=== PATIENT | female | born 1990 | race Caucasian/White ===

== ENCOUNTER 2017-04-27 17:49 | Emergency (ER) | payer BC ==
[2017-04-27 18:06] VITALS: BP 114/82
--- NOTE | 2017-04-27 18:28 | EDM.PDOC ---
ED HPI GENERAL MEDICAL PROBLEM - General Chief Complaint: Fever Stated Complaint: [id number] DOESNT FEEL GOOD Time Seen by Provider: 04/27/17 18:15 Source of Information: Reports: Patient History Limitations: Reports: No Limitations - History of Present Illness INITIAL COMMENTS - FREE TEXT/NARRATIVE: This 26 yo female patient reports to the ED with a sore throat and cough over the past 2 days. The patient reports she did have a fever earlier today (101), but her fever went away after taking a shower. The patient reports she did have nausea, vomiting and diarrhea over the past 24 hours. The patient took immodium earlier today for diarrhea. The patient reports she has not take Tylenol or ibuprofen for temporary symptom relief. Onset Date: 04/25/17 Duration: Constant, Getting Worse Location: Reports: Head, Neck, Chest Quality: Reports: Ache, Dull Severity: Moderate Improves with: Reports: None Worsens with: Reports: None Associated Symptoms: Reports: cough w sputum, Nausea/Vomiting Throat Pain Score (Numeric/FACES): 3 - Related Data Allergies Allergy/AdvReac Type Severity Reaction Status Date / Time metal Allergy Rash Uncoded 04/27/17 18:06 Home Meds: Home Meds . 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 , Other OB/BYN History: placenta wouldnt detach so had surgury Musculoskeletal History: Reports: None Neurological History: Reports: None Psychiatric History: Reports: None Endocrine/Metabolic History: Reports: None Hematologic History: Reports: None Immunologic History: Reports: None Oncologic (Cancer) History: Reports: None Dermatologic History: Reports: None - Infectious Disease History Infectious Disease History: Reports: Chicken Pox Other Infectious Disease History: has had shingles shot - Past Surgical History Head Surgeries/Procedures: Reports: None Social & Family History - Tobacco Use Smoking Status *Q: Current Every Day Smoker Years of Tobacco use: 8 Packs/Tins Daily: 1 Used Tobacco, but Quit: No Month/Year Tobacco Last Used: 08/13/2014 Second Hand Smoke Exposure: No - Caffeine Use Caffeine Use: Reports: None - Alcohol Use Days Per Week of Alcohol Use: 0 - Recreational Drug Use Recreational Drug Use: No - Living Situation & Occupation Living situation: Reports: with Significant Other Occupation: Employed ED ROS ENT - Review of Systems Review Of Systems: ROS reveals no pertinent complaints other than HPI. ED EXAM, ENT - Physical Exam Exam: See Below Exam Limited By: No Limitations General Appearance: Alert, WD/WN, Mild Distress Eye Exam: Bilateral Eye: EOMI, Normal Inspection, PERRL Ears: Normal External Exam, Normal Canal, Hearing Grossly Normal, Normal TMs Nose: Normal Inspection, Normal Mucousa, No Blood, Clear Rhinorrhea Mouth/Throat: Pharyngeal Erythema Head: Atraumatic, Normocephalic Neck: Supple, Full Range of Motion, Lymphadenopathy (L) (mild), Lymphadenopathy (R) (mild) Respiratory/Chest: No Respiratory Distress, Lungs Clear, Normal Breath Sounds, No Accessory Muscle Use, Chest Non-Tender Cardiovascular: Normal Peripheral Pulses, Regular Rate, Rhythm, No Edema, No Gallop, No JVD, No Murmur, No Rub GI/Abdominal: Normal Bowel Sounds, Soft, Non-Tender, No Organomegaly, No Distention, No Abnormal Bruit, No Mass (Female) Exam: Deferred Rectal (Female) Exam: Deferred Back: Normal Inspection, Full Range of Motion Extremities: Normal Inspection, Normal Range of Motion, Non-Tender, No Pedal Edema, Normal Capillary Refill Neurological: Alert, Oriented, CN II-XII Intact, Normal Cognition, Normal Gait, Normal Reflexes, No Motor/Sensory Deficits Psychiatric: Normal Affect, Normal Mood Skin: Warm, Dry, Intact, Normal Color, No Rash Lymphatic: No Adenopathy Course - Vital Signs Last Recorded V/S: Last Vital Signs Temp 37.1 C 04/27/17 18:00 Pulse 110 H 04/27/17 18:00 Resp 16 04/27/17 18:00 BP 114/82 04/27/17 18:00 Pulse Ox 97 04/27/17 18:00 - Orders/Labs/Meds Orders: Active Orders 24 hr Category Date Time Status CULTURE STREP A CONFIRMATION [RM] Stat Lab 04/27/17 18:15 Results STREP SCRN A RAPID W CULT CONF [RM] Stat Lab 04/27/17 18:15 Ordered Departure - Departure Time of Disposition: 18:32 Disposition: Home, Self-Care 01 Condition: Fair Clinical Impression: Sinusitis Qualifiers: Sinusitis location: frontal Chronicity: acute Recurrence: non-recurrent Qualified Code(s): J01.10 - Acute frontal sinusitis, unspecified - Discharge Information Instructions: Sinusitis, Adult, [id number] Forms: ED Department Discharge Care Plan Goals: The patient was advised of the examination and lab results during the visit. The patient was discharged with a script for Augmentin (875/125) #20 to take 1 by mouth 2 times per day for 10 days. If the patient has any additional symptoms or concerns, the patient should follow-up with her primary care facility or return to the emergency department. - My Orders Last 24 Hours: My Active Orders 04/27/17 18:15 CULTURE STREP A CONFIRMATION [RM] Stat STREP SCRN A RAPID W CULT CONF [RM] Stat - Assessment/Plan Last 24 Hours: My Active Orders 04/27/17 18:15 CULTURE STREP A CONFIRMATION [RM] Stat STREP SCRN A RAPID W CULT CONF [RM] Stat
== END 2017-04-27 18:46 | disposition home or self-care (01) ==
LOC: DL.ED 17:49
DX: J01.10 Acute frontal sinusitis, unspecified (principal); F17.210 Nicotine dependence, cigarettes, uncomplicated; Z91.09 Other allergy status, other than to drugs and biological substances
CPT/HCPCS: 87081; 87430; 99284

== ENCOUNTER 2020-11-19 18:18 | Emergency (ER) | payer BC ==
[2020-11-19] MEDS ORDERED: Ondansetron 4 MG/2 ML SDV IVPUSH ONE (20:16)
[2020-11-19] MEDS ORDERED: Sodium Chloride 0.9% 1,000 ML IV ONE (20:16)
[2020-11-19 20:24] VITALS: BP 129/87; PULSE 84
--- NOTE | 2020-11-19 20:30 | EDM.PDOC ---
ED HPI GENERAL MEDICAL PROBLEM - General Chief Complaint: Gastrointestinal Problem Stated Complaint: 97.3* TEMP, THROWING UP, FEELING SICK, BODY ACHE, Time Seen by Provider: 11/19/20 20:29 Source of Information: Reports: Patient, RN, RN Notes Reviewed History Limitations: Reports: No Limitations - History of Present Illness INITIAL COMMENTS - FREE TEXT/NARRATIVE: Gina is a 30 y/o female who presents to the ED via personal vehicle with complaints of nausea, vomiting, and abdominal pain. The patient reports her symptoms began this morning and have progressively worsened. She notes three bouts of emesis and innumerable bouts of diarrhea since this morning. She has taken one dose of antinausea medication and TUMs which offered her no alleviation in symptoms. She denies fever, shaking chills, shortness of breath, dyspepsia, hematemesis, dysuria, hematuria, or hematochezia. She reports alcohol use within the past three days as well as smoking one pack of cigarettes per day; she denies recreational drug use. The patient states her daughter was ill with similar symptoms two days ago, but has since recovered without complication. Bilateral Middle Abdomen Pain Score (Numeric/FACES): 7 - Related Data Allergies Allergy/AdvReac Type Severity Reaction Status Date / Time metal Allergy Rash Uncoded 11/19/20 20:13 Home Meds: Home Meds . 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: placenta wouldnt detach so had surgury Musculoskeletal History: Reports: None Neurological History: Reports: None Psychiatric History: Reports: None Endocrine/Metabolic History: Reports: None Hematologic History: Reports: None Immunologic History: Reports: None Oncologic (Cancer) History: Reports: None Dermatologic History: Reports: None - Infectious Disease History Infectious Disease History: Reports: Chicken Pox Other Infectious Disease History: has had shingles shot - Past Surgical History Head Surgeries/Procedures: Reports: None Social & Family History - Tobacco Use Tobacco Use Status *Q: Current Every Day Tobacco User Years of Tobacco use: 16 Packs/Tins Daily: 1 - Caffeine Use Caffeine Use: Reports: None - Recreational Drug Use Recreational Drug Use: No - Living Situation & Occupation Living situation: Reports: with Significant Other Occupation: Employed ED ROS GENERAL - Review of Systems Review Of Systems: Comprehensive ROS is negative, except as noted in HPI. ED EXAM, GI/ABD - Physical Exam Exam: See Below Exam Limited By: No Limitations General Appearance: Alert, No Apparent Distress Eyes: Bilateral: Normal Appearance, EOMI Ears: Normal External Exam, Hearing Grossly Normal Nose: Normal Inspection, Normal Mucosa, No Blood Throat/Mouth: Normal Voice, No Airway Compromise. No: Normal Oropharynx (Dry mucous membranes) Head: Atraumatic, Normocephalic Neck: Normal Inspection, Full Range of Motion Respiratory/Chest: No Respiratory Distress, Lungs Clear, Normal Breath Sounds, No Accessory Muscle Use, Chest Non-Tender Cardiovascular: Normal Peripheral Pulses, Regular Rate, Rhythm, No Gallop, No Murmur, No Rub GI/Abdominal Exam: Normal Bowel Sounds, Soft, No Distention, No Abnormal Bruit, Pelvis Stable, Tender (To LUQ with palpation) (Female) Exam: Deferred Rectal (Female) Exam: Deferred Back Exam: Normal Inspection, Full Range of Motion. No: CVA Tenderness (L), CVA Tenderness (R) Extremities: Normal Inspection, Normal Range of Motion Neurological: Alert, Oriented, CN II-XII Intact, Normal Cognition, Normal Gait, No Motor/Sensory Deficits Psychiatric: Normal Affect, Normal Mood Skin Exam: Warm, Dry, Intact, Normal Color, No Rash. No: Cyanosis, Jaundice, Mottled, Pallor Course - Vital Signs Last Recorded V/S: Last Vital Signs Temp 98.3 F 11/19/20 19:59 Pulse 84 11/19/20 19:59 Resp 16 11/19/20 19:59 BP 129/87 11/19/20 19:59 Pulse Ox 96 11/19/20 19:59 - Orders/Labs/Meds Labs: Laboratory Tests 11/19/20 11/19/20 11/19/20 Range/Units 20:10 20:10 20:10 WBC 13.7 H (5.0-10.0) 10^3/uL RBC 5.24 (4.2-5.4) 10^6/uL Hgb 17.3 H D (12.0-16.0) g/dL Hct 49.6 H (37.0-47.0) % MCV 94.7 D (80-100) fL MCH 33.0 (27.0-34.0) pg MCHC 34.9 (33.0-35.0) g/dL Plt Count 186 D (150-450) 10^3/uL Neut % (Auto) 83.8 H (42.2-75.2) % Lymph % (Auto) 12.0 L (20.5-50.1) % Briscoe % (Auto) 3.2 (2-8) % Eos % (Auto) 0.9 L (1.0-3.0) % Baso % (Auto) 0.1 (0.0-1.0) % Sodium 138 (136-145) mmol/L Potassium 4.6 (3.5-5.1) mmol/L Chloride 101 (98-107) mmol/L Carbon Dioxide 23 (21-32) mmol/L Anion Gap 18.6 H (7-13) mEq/L BUN 15 (7-18) mg/dL Creatinine 0.65 (0.55-1.02) mg/dL Est Cr Clr Drug Dosing 118.47 mL/min Estimated GFR (MDRD) > 60 BUN/Creatinine Ratio 23.1 (No establ ref range) Glucose 101 H (70-99) mg/dL Lactic Acid 0.7 (0.4-2.0) mmol/L Calcium 8.9 (8.5-10.1) mg/dL Magnesium 2.1 (1.8-2.4) mg/dL Total Bilirubin 0.9 (0.2-1.0) mg/dL AST 234 H (15-37) U/L ALT 244 H (14-59) U/L Alkaline Phosphatase 95 (46-116) U/L Total Protein 8.0 (6.4-8.2) g/dL Albumin 3.9 (3.4-5.0) g/dL Globulin 4.1 Albumin/Globulin Ratio 1.0 Amylase (25-115) U/L Lipase (73-393) U/L Urine Color (YELLOW) Urine Appearance (CLEAR) Urine pH (5.0-9.0) Ur Specific Newton (1.005-1.030) Urine Protein (NEGATIVE) Urine Glucose (UA) (NEGATIVE) Urine Ketones (NEGATIVE) Urine Occult Blood (NEGATIVE) Urine Nitrite (NEGATIVE) Urine Bilirubin (NEGATIVE) Urine Urobilinogen (0.2-1.0) mg/dL Ur Leukocyte Esterase (NEGATIVE) Urine HCG, Qual Urine Opiates Screen (NEGATIVE) Ur Oxycodone Screen (NEGATIVE) Urine Methadone Screen (NEGATIVE) Ur Barbiturates Screen (NEGATIVE) U Tricyclic Antidepress (NEGATIVE) Ur Phencyclidine Scrn (NEGATIVE) Ur Amphetamine Screen (NEGATIVE) U Methamphetamines Scrn (NEGATIVE) Urine MDMA Screen (NEGATIVE) U Benzodiazepines Scrn (NEGATIVE) Urine Cocaine Screen (NEGATIVE) U Marijuana (THC) Screen (NEGATIVE) Ethyl Alcohol < 3 (0) mg/dL 11/19/20 11/19/20 11/19/20 Range/Units 20:10 20:33 20:33 WBC (5.0-10.0) 10^3/uL RBC (4.2-5.4) 10^6/uL Hgb (12.0-16.0) g/dL Hct (37.0-47.0) % MCV (80-100) fL MCH (27.0-34.0) pg MCHC (33.0-35.0) g/dL Plt Count (150-450) 10^3/uL Neut % (Auto) (42.2-75.2) % Lymph % (Auto) (20.5-50.1) % Briscoe % (Auto) (2-8) % Eos % (Auto) (1.0-3.0) % Baso % (Auto) (0.0-1.0) % Sodium (136-145) mmol/L Potassium (3.5-5.1) mmol/L Chloride (98-107) mmol/L Carbon Dioxide (21-32) mmol/L Anion Gap (7-13) mEq/L BUN (7-18) mg/dL Creatinine (0.55-1.02) mg/dL Est Cr Clr Drug Dosing mL/min Estimated GFR (MDRD) BUN/Creatinine Ratio (No establ ref range) Glucose (70-99) mg/dL Lactic Acid (0.4-2.0) mmol/L Calcium (8.5-10.1) mg/dL Magnesium (1.8-2.4) mg/dL Total Bilirubin (0.2-1.0) mg/dL AST (15-37) U/L ALT (14-59) U/L Alkaline Phosphatase (46-116) U/L Total Protein (6.4-8.2) g/dL Albumin (3.4-5.0) g/dL Globulin Albumin/Globulin Ratio Amylase 42 (25-115) U/L Lipase 119 (73-393) U/L Urine Color Dark yellow (YELLOW) Urine Appearance Slightly cloudy (CLEAR) Urine pH 5.5 (5.0-9.0) Ur Specific Newton >= 1.030 (1.005-1.030) Urine Protein Negative (NEGATIVE) Urine Glucose (UA) Negative (NEGATIVE) Urine Ketones 80 H (NEGATIVE) Urine Occult Blood Negative (NEGATIVE) Urine Nitrite Negative (NEGATIVE) Urine Bilirubin Small H (NEGATIVE) Urine Urobilinogen 0.2 (0.2-1.0) mg/dL Ur Leukocyte Esterase Negative (NEGATIVE) Urine HCG, Qual Negative Urine Opiates Screen (NEGATIVE) Ur Oxycodone Screen (NEGATIVE) Urine Methadone Screen (NEGATIVE) Ur Barbiturates Screen (NEGATIVE) U Tricyclic Antidepress (NEGATIVE) Ur Phencyclidine Scrn (NEGATIVE) Ur Amphetamine Screen (NEGATIVE) U Methamphetamines Scrn (NEGATIVE) Urine MDMA Screen (NEGATIVE) U Benzodiazepines Scrn (NEGATIVE) Urine Cocaine Screen (NEGATIVE) U Marijuana (THC) Screen (NEGATIVE) Ethyl Alcohol (0) mg/dL 11/19/20 Range/Units 20:33 WBC (5.0-10.0) 10^3/uL RBC (4.2-5.4) 10^6/uL Hgb (12.0-16.0) g/dL Hct (37.0-47.0) % MCV (80-100) fL MCH (27.0-34.0) pg MCHC (33.0-35.0) g/dL Plt Count (150-450) 10^3/uL Neut % (Auto) (42.2-75.2) % Lymph % (Auto) (20.5-50.1) % Briscoe % (Auto) (2-8) % Eos % (Auto) (1.0-3.0) % Baso % (Auto) (0.0-1.0) % Sodium (136-145) mmol/L Potassium (3.5-5.1) mmol/L Chloride (98-107) mmol/L Carbon Dioxide (21-32) mmol/L Anion Gap (7-13) mEq/L BUN (7-18) mg/dL Creatinine (0.55-1.02) mg/dL Est Cr Clr Drug Dosing mL/min Estimated GFR (MDRD) BUN/Creatinine Ratio (No establ ref range) Glucose (70-99) mg/dL Lactic Acid (0.4-2.0) mmol/L Calcium (8.5-10.1) mg/dL Magnesium (1.8-2.4) mg/dL Total Bilirubin (0.2-1.0) mg/dL AST (15-37) U/L ALT (14-59) U/L Alkaline Phosphatase (46-116) U/L Total Protein (6.4-8.2) g/dL Albumin (3.4-5.0) g/dL Globulin Albumin/Globulin Ratio Amylase (25-115) U/L Lipase (73-393) U/L Urine Color (YELLOW) Urine Appearance (CLEAR) Urine pH (5.0-9.0) Ur Specific Newton (1.005-1.030) Urine Protein (NEGATIVE) Urine Glucose (UA) (NEGATIVE) Urine Ketones (NEGATIVE) Urine Occult Blood (NEGATIVE) Urine Nitrite (NEGATIVE) Urine Bilirubin (NEGATIVE) Urine Urobilinogen (0.2-1.0) mg/dL Ur Leukocyte Esterase (NEGATIVE) Urine HCG, Qual Urine Opiates Screen Negative (NEGATIVE) Ur Oxycodone Screen Negative (NEGATIVE) Urine Methadone Screen Negative (NEGATIVE) Ur Barbiturates Screen Negative (NEGATIVE) U Tricyclic Antidepress Negative (NEGATIVE) Ur Phencyclidine Scrn Negative (NEGATIVE) Ur Amphetamine Screen Negative (NEGATIVE) U Methamphetamines Scrn Negative (NEGATIVE) Urine MDMA Screen Negative (NEGATIVE) U Benzodiazepines Scrn Negative (NEGATIVE) Urine Cocaine Screen Negative (NEGATIVE) U Marijuana (THC) Screen Negative (NEGATIVE) Ethyl Alcohol (0) mg/dL Meds: Medications Discontinued Medications Generic Name Dose Route Start Last Admin Trade Name Freq PRN Reason Stop Dose Admin Sodium Chloride 1,000 mls @ 999 mls/hr 11/19/20 20:16 11/19/20 20:31 Normal Saline IV 11/19/20 21:16 999 mls/hr .BOLUS ONE Administration Iopamidol 100 ml 10/07/21 21:00 11/19/20 21:12 Iopamidol 612 Mg/Ml 100 Ml Bottle IVPUSH 11/19/20 21:01 100 ml ONETIME ONE Administration Ondansetron HCl 4 mg 11/19/20 20:16 11/19/20 20:31 Ondansetron 4 Mg/2 Ml Sdv IVPUSH 11/19/20 20:17 4 mg ONETIME ONE Administration - Radiology Interpretation Free Text/Narrative:: [facility] Final Radiology Report Call: [phone] assistance Online chat: [email or web address] Name: GINA HENRIQUEZ Age: 30Years F Date: 11/19/2020 SSN: -- : 1990 Study: CT ABDOMEN PELVIS W CONT Requesting Physician: Gayle Lopez Images: 400 Addl Studies: Provided Clinical History: Upper abdominal pain; elevated liver enzymes; Contrast: With Contrast Medium: Contrast Amount: 75 mL Contrast Method: Intravenous (IV) Page 1 of 2 PROCEDURE INFORMATION: Exam: CT Abdomen And Pelvis With Contrast Exam date and time: 11/19/2020 9:25 PM Age: 30 years old Clinical indication: Nausea and vomiting and other: Diarrhea, wbc 13,700; Additional info: Upper abdominal pain; Elevated liver enzymes; TECHNIQUE: Imaging protocol: Computed tomography of the abdomen and pelvis with contrast. Radiation optimization: All CT scans at this facility use at least one of these dose optimization techniques: automated exposure control; mA and/or kV adjustment per patient size (includes targeted exams where dose is matched to clinical indication); or iterative reconstruction. Contrast material: [id number]; Contrast volume: 75 ml; Contrast route: INTRAVENOUS (IV); COMPARISON: No relevant prior studies available. FINDINGS: Lungs: The visualized lung bases are unremarkable. No pleural effusion. Liver: There is a diffuse decrease in hepatic parenchymal density, consistent with mild fatty infiltration. Gallbladder and bile ducts: Unremarkable CT appearance of the gallbladder. No biliary dilation. Pancreas: The pancreas is within normal limits. Spleen: The spleen is normal. Adrenal glands: The adrenal glands are normal. Kidneys and ureters: Punctate nonobstructing right inferior pole collecting system calculus. No left nephrolithiasis. No hydronephrosis bilaterally. Stomach and bowel: The stomach is within normal limits. No bowel obstruction. There is a small amount of fluid throughout the (non-dilated) colon. Appendix: Normal appendix. Intraperitoneal space: No pneumoperitoneum. No abnormal free fluid or fluid collection. Vasculature: The aorta is normal. Lymph nodes: There is no evidence of lymphadenopathy. Urinary bladder: The urinary bladder is within normal limits. Reproductive: 4 cm right adnexal cyst. Unremarkable CT appearance of the uterus and left ovary. Bones/joints: No acute fracture or dislocation. Soft tissues: The extra-abdominal soft tissues are unremarkable. IMPRESSION: 1. No bowel obstruction. Small volume fluid in the colon compatible with diarrheal illness. Correlate for enterocolitis. 2. Small (4 cm) right adnexal cyst. This is most likely physiologic, but if there is clinical concern for pelvic pathology ultrasound would be helpful for further evaluation. 3. Additional chronic and incidental findings as above. Thank you for allowing us to participate in the care of your patient. Dictated and Authenticated by: Piter Dolan MD 11/19/2020 10:24 PM Central Time ([place] & [place]) - Re-Assessments/Exams Free Text/Narrative Re-Assessment/Exam: 11/19/20 NS 1L bolus and Zofran 4mg IVP administered while labs pending. Will obtain CT abdomen/pelvis given elevated WBC and LFTs. Findings of examination, lab work, and imaging reviewed with patient. Will treat nausea with Zofran ODT. Supportive cares for nausea/vomiting/diarrhea discussed. Patient instructed to follow up with primary care provider in 5-7 regarding todays visit. Red flag signs and symptoms which would warrant i mmediate reevaluation reviewed. Patient verbalized understanding and agreement with the plan of care. Departure - Departure Time of Disposition: 22:27 Disposition: Home, Self-Care 01 Condition: Good Clinical Impression: Enteritis, Dehydration, Right ovarian cyst, Elevated liver enzymes - Discharge Information *PRESCRIPTION DRUG MONITORING PROGRAM REVIEWED*: Not Applicable *COPY OF PRESCRIPTION DRUG MONITORING REPORT IN PATIENT JR: Not Applicable Instructions: Viral Gastroenteritis, Adult, [id number], Ovarian Cyst, Dehydration, Adult Forms: ED Department Discharge Additional Instructions: Rx: Zofran ODT 1.) You may take Pepto Bismol, per bottle instructions, should symptoms persist. 2.) Drink small, frequent sips of water to stay hydrated. 3.) Eat bland small, snack-sized meals once nausea has subsided. Avoid spicy, greasy, high-fat foods. 4.) Follow up with your primary care provider, or return to the emergency department, with any persistent or worsening symptoms. 5.) Follow up with your primary care provider regarding today's visit in 5-7 days. Sepsis Event Note (ED) - Evaluation Sepsis Screening Result: No Definite Risk - Focused Exam Vital Signs: Vital Signs Temp Pulse Resp BP Pulse Ox 11/19/20 19:59 98.3 F 84 16 129/87 96
[2020-11-19 20:36] LABS: ANION GAP 18.6 mEq/L (7-13); CHLORIDE,CL 101 mmol/L (98-107); SODIUM,NA 138 mmol/L (136-145)
[2020-11-19 20:45] LABS: AMPHETAMINES,URINE NEGATIVE (NEGATIVE); BARBITURATES,URINE NEGATIVE (NEGATIVE); BENZODIAZEPINE,URINE NEGATIVE (NEGATIVE); MDMA (ECSTASY), URINE NEGATIVE (NEGATIVE); METHADONE,URINE NEGATIVE (NEGATIVE); METHAMPHETAMINES,URINE NEGATIVE (NEGATIVE); OPIATES,URINE NEGATIVE (NEGATIVE); OXYCODONE,URINE NEGATIVE (NEGATIVE); PHENCYCLIDINE,URINE NEGATIVE (NEGATIVE); TCA,URINE NEGATIVE (NEGATIVE)
[2020-11-19] MEDS ORDERED: Iopamidol 612 MG/ML 100 ML Bottle IVPUSH ONE (21:00)
--- NOTE | 2020-11-19 22:24 | CT ---
PROCEDURE INFORMATION: Exam: CT Abdomen And Pelvis With Contrast Exam date and time: 11/19/2020 9:25 PM Age: 30 years old Clinical indication: Nausea and vomiting and other: Diarrhea, wbc 13,700; Additional info: Upper abdominal pain; Elevated liver enzymes; TECHNIQUE: Imaging protocol: Computed tomography of the abdomen and pelvis with contrast. Radiation optimization: All CT scans at this facility use at least one of these dose optimization techniques: automated exposure control; mA and/or kV adjustment per patient size (includes targeted exams where dose is matched to clinical indication); or iterative reconstruction. Contrast material: [id number]; Contrast volume: 75 ml; Contrast route: INTRAVENOUS (IV); COMPARISON: No relevant prior studies available. FINDINGS: Lungs: The visualized lung bases are unremarkable. No pleural effusion. Liver: There is a diffuse decrease in hepatic parenchymal density, consistent with mild fatty infiltration. Gallbladder and bile ducts: Unremarkable CT appearance of the gallbladder. No biliary dilation. Pancreas: The pancreas is within normal limits. Spleen: The spleen is normal. Adrenal glands: The adrenal glands are normal. Kidneys and ureters: Punctate nonobstructing right inferior pole collecting system calculus. No left nephrolithiasis. No hydronephrosis bilaterally. Stomach and bowel: The stomach is within normal limits. No bowel obstruction. There is a small amount of fluid throughout the (non-dilated) colon. Appendix: Normal appendix. Intraperitoneal space: No pneumoperitoneum. No abnormal free fluid or fluid collection. Vasculature: The aorta is normal. Lymph nodes: There is no evidence of lymphadenopathy. Urinary bladder: The urinary bladder is within normal limits. Reproductive: 4 cm right adnexal cyst. Unremarkable CT appearance of the uterus and left ovary. Bones/joints: No acute fracture or dislocation. Soft tissues: The extra-abdominal soft tissues are unremarkable. IMPRESSION: 1. No bowel obstruction. Small volume fluid in the colon compatible with diarrheal illness. Correlate for enterocolitis. 2. Small (4 cm) right adnexal cyst. This is most likely physiologic, but if there is clinical concern for pelvic pathology ultrasound would be helpful for further evaluation. 3. Additional chronic and incidental findings as above.
== END 2020-11-19 22:47 | disposition home or self-care (01) ==
LOC: DL.ED 18:18
DX: K52.9 Noninfective gastroenteritis and colitis, unspecified (principal); E86.0 Dehydration; N83.201 Unspecified ovarian cyst, right side; R74.8 Abnormal levels of other serum enzymes; Z91.048 Other nonmedicinal substance allergy status; Z72.0 Tobacco use
CPT/HCPCS: 36415; 74177; 80053; 80305-QW; 80307; 81003; 81025; 82150; 83605; 83690; 83735; 85025; 96374; 99283; 99284-25; J2405; J7030; Q9967